=== PATIENT | female | born 1965 ===

== ENCOUNTER 2017-04-21 14:25 | Outpatient (CLI) | payer OTHER | END 2017-04-21 14:26 | disposition home or self-care (01) | LOC: NUCLEAR 14:25 | DX: R00.2 Palpitations (principal); R00.0 Tachycardia, unspecified ==

== ENCOUNTER 2023-12-22 13:30 | Outpatient (CLI) | payer OTHER | END 2023-12-22 13:35 | disposition home or self-care (01) | LOC: RAD 13:30 | PROVIDERS: ATTEND Physical Medicine & Rehabilitation | DX: M72.2 Plantar fascial fibromatosis (principal) ==